=== PATIENT | female | born 1965 | race Two or more races ===

== ENCOUNTER 2017-09-13 10:51 | Emergency (ER) | payer MEDICAID ==
[~2017-09-13] VITALS: Ht 165.1 cm; Wt 76.2 kg
[2017-09-13 10:55] VITALS: BP 148/87
== END 2017-09-13 16:19 ==
LOC: ED 16:13
DX: N93.9 Abnormal uterine and vaginal bleeding, unspecified (principal)
CPT/HCPCS: 99281